=== PATIENT | male | born 1985 | race Two or more races ===

== ENCOUNTER 2017-10-01 21:38 | Emergency (ER) | payer MEDICAID ==
[~2017-10-01] VITALS: Ht 175.3 cm; Wt 79.4 kg
[2017-10-01 21:50] VITALS: BP 155/99
[2017-10-01 22:27] LABS: Basophils # (auto) 0.1 uL; Eosinophils # (auto) 0.1 uL; Lymphocytes % (auto) 22.8 % (10.0-50.0); Monocytes # (auto) 0.4 uL; Nucleated Red Blood Cells % 0.1 %
[2017-10-01 22:28] LABS: Basophils % (auto) 0.6 % (0.0-2.0); Eosinophils % (auto) 1.1 % (0.0-7.0); Hematocrit 45.3 % (41.0-53.0); Mean Corpuscular Hemoglobin 26.1 pg (28.0-32.0); Mean Corpuscular Hgb Conc. 33.1 g/dL (32.0-36.0); Mean Corpuscular Volume 78.6 fL (80.0-100.0); Mean Platelet Volume 7.7 fL (6.9-10.8); Monocytes % (auto) 4.3 % (0.0-12.0); Neutrophils # (auto) 6.1 uL; Neutrophils % (auto) 71.2 % (37.0-80.0); Platelet Count (auto) 347 10^3/uL (140-450); Red Cell Distribution Width 13.9 % (11.8-14.3); White Blood Cell 8.6 10^3/uL (4.4-10.8)
[2017-10-01 22:30] LABS: Urine RBC None Seen /hpf (0 - 3)
[2017-10-01 22:37] LABS: Anion Gap 6 (5-15); BUN/Creatinine Ratio 12.1; Blood Urea Nitrogen 11 mg/dL (7-18); Calcium 8.8 mg/dL (8.5-10.1); Carbon Dioxide 28 mmol/L (21-32); Chloride 102 mmol/L (98-107); GFR African American 124 mL/min; GFR Non-African American 103 mL/min; Glucose 128 mg/dL (74-106); Potassium 3.7 mmol/L (3.5-5.1); Sodium 136 mmol/L (136-145)
[2017-10-01 22:40] LABS: Alkaline Phosphatase 131 U/L (45-117); Aspartate Aminotransferase 18 U/L (15-37); Bilirubin, Total 0.3 mg/dL (0.2-1.0); Total Protein 7.8 g/dL (6.4-8.2)
[2017-10-01 22:41] LABS: Acetaminophen < 2.0 ug/mL (10-30); Salicylate < 1.7 mg/dL (2.8-20.0)
[2017-10-01 22:45] LABS: Urine Bilirubin Negative (Negative); Urine Blood Negative /uL (Negative); Urine Color Yellow (Yellow); Urine Glucose Normal (Normal); Urine Ketone Negative (Negative); Urine Mucus FEW (None Seen); Urine Nitrite Negative (Negative); Urine Sperm PRESENT /hpf (None Seen); Urine Urobilinogen Normal (Negative); Urine pH 5.5 (5.0-8.0)
== END 2017-10-02 06:13 | disposition left against medical advice (07) ==
LOC: ER 21:38
DX: F15.90 Other stimulant use, unspecified, uncomplicated (principal); F10.99 Alcohol use, unspecified with unspecified alcohol-induced disorder; Z53.21 Procedure and treatment not carried out due to patient leaving prior to being seen by health care provider
CPT/HCPCS: 36415; 80053; 80307; 80320; 80329; 81001; 85025